=== PATIENT | female | born 1940 | race Caucasian/White ===

== ENCOUNTER 2023-03-02 09:07 | Outpatient (CLI) | payer MEDICARE, SELFPAY ==
[2023-03-02 09:39] LABS: Hematocrit 39.5 % (37.0-47.0); Hemoglobin 12.8 g/dL (12.0-15.0); Mean Corpuscular HGB Conc 32.4 g/dl (32-36); Mean Corpuscular Hemoglobin 31.3 pg (26-34); Mean Corpuscular Volume 96.6 fl (80-100); Mean Platelet Volume 8.8 fl (7.4-10.4); Platelet Count Result 259 k/mm3 (150-375); Red Blood Count 4.09 M/mm3 (4.2-5.4); Red Cell Distribution Width 12.6 % (11.5-14.5); White Blood Count 6.8 K/mm3 (4.5-10.0)
[2023-03-02 09:43] LABS: Appearance Urine Clear (Clear); Bilirubin Urine Negative (Negative); Blood Urine Negative (Negative); Color Urine Yellow (Yellow); Glucose Urine UA Negative (Negative); Ketones Urine Negative (Negative); Leukocyte Esterase Ur Negative LEU/UL (Negative); Nitrate Urine Negative (Negative); Protein Urine Negative (Negative); Specific Grav Ur 1.006 (1.001-1.035); Urobilinogen Urine 0.2 mg/dL (<2.0)
[2023-03-02 09:51] LABS: Prothrombin Time 13.2 Seconds (11.1-14.7)
[2023-03-02 09:52] LABS: Partial Thromboplastin Time 36.2 SECONDS (22.3-36.8)
[2023-03-02 09:54] LABS: Add Urine Microscopic? NO
[2023-03-02 10:20] LABS: Anion Gap 6 mmol/L (8-16); Blood Urea Nitrogen 15 mg/dL (7-17); Calcium 9.2 mg/dL (8.4-10.2); Carbon Dioxide 33 mmol/L (22-30); Chloride 100 mmol/L (98-107); Estimated Glomerular Filt Rate > 60; Glucose 108 mg/dL (65-110); Potassium 3.6 mmol/L (3.4-5.0); Sodium 139 mmol/L (137-145)
== END 2023-03-02 09:08 | disposition home or self-care (01) ==
LOC: ANHSURGERY 09:12
PROVIDERS: PCP Internal Medicine; Visit Provider Neurological Surgery
DX: Z01.818 Encounter for other preprocedural examination (principal); M48.062 Spinal stenosis, lumbar region with neurogenic claudication
CPT/HCPCS: 36415; 80048; 81003; 85027; 85610; 85730

== ENCOUNTER 2023-03-08 22:23 | Inpatient (IN) | payer MEDICARE, SELFPAY ==
--- NOTE | 2023-03-01 12:30 | PC.NURSE ---
Report to the Outpatient Waiting Room, entrance under the green pavilion located off [facility], at time 1000 on date _03/08/23 . Planned Procedure Time: _1200 . Time changes happen often and if your time is changed the preop area will call you the afternoon before. - You and your visitor will be asked to self-screen and do not enter if you have any COVID symptoms. - A mask is optional within the hospital at this time. Patients may have clear liquids (water, carbonated beverages, clear teas, apple juice) until 3 hours prior to surgery with a maximum of 20 ounces. - No food from midnight until time of surgery - Infants may have breast milk until 4 hours before surgery, infant formula 6 hours prior to surgery. - Children will be allowed to drink immediately following surgery. If applicable, please bring a bottle or sippy cup to assist with drinking. Juice, water, soda, and popsicles are readily available. For infants on formula, please bring formula the day of surgery. Pacifiers are allowed. Take the following medications with a SIP of water the morning of surgery: ___NONE DO NOT STOP ANY OF YOUR OTHER PRESCRIPTION MEDICATIONS PRIOR TO SURGERY ?EXCEPT THE FOLLOWING Medications to discontinue per physician ___PT STATES PER DR BURNETT HOLD IBUPROFEN 7 DAYS PRE OP.LAST DOSE 02/28/23 Date to take last dose Please no make-up, nail persian, hairspray, perfume, deodorant, or body powder the day of surgery. No jewelry (including any body piercings) or valuables the day of surgery, leave them at home. Please take a shower or bath the night before, or the morning of, surgery with an antibacterial soap. Wear comfortable, loose fitting clothing. Children are encouraged to wear pajamas. - Jewelry must be removed prior to entering the operating room. Rings and piercings that are not removed may be cut off. - The hospital will not accept responsibility for valuables. - Please leave all valuables, including medications, at home the day of surgery. If you are going home after surgery, a licensed four horse hitch driver must drive you home. - NO public transportation without another adult if you receive anesthesia. - We recommend that an adult stay with you for 24 hours following discharge. - We also recommend that you do not drive, make important decision, drink alcoholic beverages, or take any drugs that were not prescribed by your health care provider for at least 24 hours after your discharge time. For Pediatric surgeries, we recommend two adults accompany the child home. Follow any additional instructions given to you from your surgeon. If you or anyone in your household have experienced Covid symptoms in the past week, please notify your surgeon or the nurse liaison at the phone number below for possible testing. Telephone instructions given to ___PATIENT and asked if any additional questions and then verbalized understanding. Patient advised to call surgeon office or pre surgery nurse liaison [phone] if any additional questions.
[2023-03-01 12:41] VITALS: BMI 32.0
[2023-03-08] VITALS (18 sets, daily range): BP systolic 112–151; BP diastolic 45–74; PULSE 64–88; RESP 10–20; TEMP 36.3–37.4; O2SAT 93–100
--- NOTE | ~2023-03-08 | XR_ITS ---
EXAMINATION: XR fluoroscopy no charge DATE: 03/08/2023 14:00 CDT INDICATION: L2-5 LAMINECTOMY . TECHNIQUE: 1 fluoroscopic image of the lateral lumbar spine were obtained during L2-5 laminectomy per formed by the surgeon. I was not present in the operating room. Fluoroscopy exposure time was 2.3 sec onds. Air Kerma 1.2974 mGy. DAP 0.0257 mGym2. COMPARISON: None FINDINGS: Retractors over the posterior soft tissues. A probe identifies the L4 level in the space between the L3 and L4 spinous processes. IMPRESSION: Fluoroscopic documentation of L2-5 laminectomy. Please refer to the operative note for complete proce dural details . Reviewed, dictated and finalized at location K. IMPRESSION: Fluoroscopic documentation of L2-5 laminectomy. Please refer to the operative n ote for complete procedural details .
[2023-03-08] MEDS: LACTATED RINGERS 1,000 ML 30 ML IV CONT ×3 (10:30→21:16)
--- NOTE | 2023-03-08 11:55 | SUR.PREOP ---
Discussed delay with patient and family.
--- NOTE | 2023-03-08 12:57 | PM.IMHP ---
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 She has not changed appreciably since we last saw her. She does not have specific muscle group weakness or dermatomal numbness. She is not having any bowel or bladder difficulty. Review of Systems Review of Systems: Patient denies shortness of breath, cough, fever, chills, nausea, vomiting, weight loss, weight gain, chest pain, dysuria. She has back and leg pain and claudication as above. Review of systems is otherwise negative on 12 systems except as noted elsewhere. [facility] Past Medical History Medical History (Updated 12/04/22 @ 13:25 by Rani Caceres) Arthritis Hypertension Surgical History Surgical History (Updated 12/04/22 @ 13:25 by Rani Caceres) Carpal tunnel syndrome H/O: hysterectomy History of hip replacement History of knee replacement Family History Family History (Updated 12/04/22 @ 13:25 by Rani Caceres) Mother Cancer Social History Social History (Updated 12/04/22 @ 13:26 by Rani Caceres) Smoking status: Never smoker Second hand tobacco smoke exposure: No Alcohol intake: never Substance use: never Lack of Transportation: No Lack of Food: Never True Concerned About Future Housing: No Difficulty Paying Gas/Electric Bills: No Difficulty Paying for Meds: No Living arrangements: with family Spiritual care concerns: No Meds Home Medications and Allergies Home Medications Medication Instructions Recorded Confirmed Type diphenhydramine 25 1 tablet PO QHS PRN Insomnia 12/04/22 03/01/23 History mg-acetaminophen 500 mg tablet (Tylenol PM Extra Strength) ibuprofen 800 mg tablet 800 mg PO TID 12/04/22 03/01/23 History lisinopril 20 1 tablet PO DAILY 12/04/22 03/01/23 History mg-hydrochlorothiazide 12.5 mg tablet pregabalin 100 mg capsule 100 mg PO HS 12/04/22 03/01/23 History simvastatin 40 mg tablet 40 mg PO DAILY 12/04/22 03/01/23 History Allergies Allergy/AdvReac Type Severity Reaction Status Date / Time No Known Allergies Allergy Unverified 03/01/23 12:13 Vital Signs Vital Signs - 24 hr 03/08/23 10:20 Temperature 99.4 F Pulse Rate 64 Respiratory Rate 16 Blood Pressure 147/59 H Pulse Oximetry 99 Oxygen Delivery Room Air Exam Narrative: Strength is 5/5 in all muscle groups of the bilateral lower extremities. Sensation is intact to light touch throughout the lower extremities. Breathing is nonlabored Regular rate and rhythm Assessment and Plan Assessment and plan (1) Lumbar stenosis with neurogenic claudication: Code(s): M48.062 - Spinal stenosis, lumbar region with neurogenic claudication Status: Acute Plan Karen is an 83-year-old female with back and leg pain and neurogenic stenosis at L2-5. She presents now for L2-5 laminectomy. I described to her again that operation, its risks, potential benefits, the operative and postoperative course in detail and answered all her questions personally. She indicates understanding and elects to proceed with that operation.
--- NOTE | 2023-03-08 12:59 | WPDHPUPDATE1 ---
History and Physical Update Update Date/Time: 03/08/23 12:59 History and Physical has been reviewed, including an updated exam of the patient. There are NO changes in the patient's condition. Risks, benefits, and alternatives have been discussed and questions answered. Patient agrees to proceed with procedure.
--- NOTE | 2023-03-08 12:59 | SUR.PREOP ---
Again discussed delay with patient and family.
--- NOTE | 2023-03-08 13:20 | WPDANESEPPF ---
Anes - Initial Pre Proc Eval Procedure: Operation Date: 03/08/23 12:00 Proposed Procedures p L 2-5 Lumbar Laminectomy - Nilay Jean Baptiste MD Date/Time: 03/08/23 13:20 Surgeon: Nilay Jean Baptiste MD Pre Op Diagnosis: lumbar stenosis Patient Data Age: 83 Gender: F Height: 1.57 m Weight: 75 kg Last Vital Signs Temp 99.4 F 03/08/23 10:20 Pulse 64 03/08/23 10:20 Resp 16 03/08/23 10:20 BP 147/59 H 03/08/23 10:20 Pulse Ox 99 03/08/23 10:20 O2 Del Method Room Air 03/08/23 10:20 Allergies Allergy/AdvReac Type Severity Reaction Status Date / Time No Known Allergies Allergy Unverified 03/01/23 12:13 Home Medications Medication Instructions Recorded Confirmed Type diphenhydramine 25 1 tablet PO QHS PRN Insomnia 12/04/22 03/01/23 History mg-acetaminophen 500 mg tablet (Tylenol PM Extra Strength) ibuprofen 800 mg tablet 800 mg PO TID 12/04/22 03/01/23 History lisinopril 20 1 tablet PO DAILY 12/04/22 03/01/23 History mg-hydrochlorothiazide 12.5 mg tablet pregabalin 100 mg capsule 100 mg PO HS 12/04/22 03/01/23 History simvastatin 40 mg tablet 40 mg PO DAILY 12/04/22 03/01/23 History Patient hx anesthesia problems: post op nausea/vomiting Family hx anesthesia problems: none Results Review: All pre-operative results and documents have been reviewed as part of the pre-operative evaluation. [facility] Past Medical History Medical History (Updated 12/04/22 @ 13:25 by Rani Caceres) Arthritis Hypertension Surgical History Surgical History (Updated 12/04/22 @ 13:25 by Rani Caceres) Carpal tunnel syndrome H/O: hysterectomy History of hip replacement History of knee replacement Family History Family History (Updated 12/04/22 @ 13:25 by Rani Caceres) Mother Cancer Social History Social History (Updated 12/04/22 @ 13:26 by Rani Caceres) Smoking status: Never smoker Second hand tobacco smoke exposure: No Alcohol intake: never Substance use: never Lack of Transportation: No Lack of Food: Never True Concerned About Future Housing: No Difficulty Paying Gas/Electric Bills: No Difficulty Paying for Meds: No Living arrangements: with family Spiritual care concerns: No Anes - Eval Final PreProcedure Day of Procedure 03/08/23 13:20 Patient weight: obese Heart: regular rate and rhythm Lungs: clear to auscultation Airway: Mallampati scale class III Neurological: alert and oriented Last oral intake: >/= 8 hours ASA classification: III Emergent: no Anesthetic plan: proceed Anesthesia type and monitoring: general ETT and standard monitoring Results Review: All pre-operative results and documents have been reviewed as part of the pre-operative evaluation. Informed Consent: The patient's anesthetic plan and its attendant risks and benefits were discussed with the patient/family/POA. Questions were solicited and answers provided to the satisfaction of the patient/family/POA.
[2023-03-08] MEDS: ceFAZolin 2 GM/D5W 50 ML 2 GM/50 ML BAG IVPB (13:34)
[2023-03-08] MEDS: LIDO 1%/EPINEPHRINE 1:100,000 50 ML VIAL 10 ML INFILTRATE ×2 (14:21→20:49)
[2023-03-08] MEDS: fentaNYL CITRATE INJ (*CRX) 100 MCG/2 ML VIAL 25 MCG IV PUSH ×2 (15:59→16:13)
[2023-03-08] MEDS: MORPHINE SULFATE (*CRX) 2 MG/ML INJ IV PUSH ×2 (17:23→23:01)
--- NOTE | 2023-03-08 19:15 | PC.NURSE ---
Pt alert and oriented. Family at bedside. Pt concerned about lack of feeling to feet up to mid calf. Physical assessment completed and pt is not able to feel pressure or touch up to mid/upper calf. At upper calf pt is able to feel pressure and touch. Pt is able to lightly move her right toes and weak flex and extension. Left foot she is able to slightly move her big toe but unable to move other toes and weak flexion and extension (push and pull). Dr Jean Baptiste is coming in to evaluate patient. Health And Wellness Director Jillian is aware.
--- NOTE | 2023-03-08 19:32 | W.PM.PROC2 ---
Procedure Note - Detailed Date of Procedure 03/08/23 Pre-op Diagnosis lumbar stenosis Post-op Diagnosis Same Procedure Performed L2-5 laminectomy Surgeon Nilay Jean Baptiste MD Anesthesia General Description of Procedure the patient was brought to the operating room in the supine position, was sedated, intubated and placed under general anesthesia in routine fashion. She was then turned into the prone position on a Sebastián frame. The of operation her back was examined, marked for incision, prepped and draped in routine sterile fashion. Incision was marked over the L2-3 5 spinous processes in the midline. This area was injected with 0.5% lidocaine with 1 to 306407 epinephrine. Intravenous antibiotics given prior to incision. Incision was made with a 10 blade scalpel down to the lumbar dorsal fascia. A subperiosteal dissection of the muscle soft tissue away from spinous process and lamina was performed with a subperiosteal elevator and Bovie cautery. A verifying x-rays obtained to verify the level of operation. The L2-3 for spinous processes in the top of the L5 spinous process were removed with the coarsely rongeur. A Midas Krishna drill within a corn bit was used to thin the lamina in the midline to the soft contents of the canal were encountered. Kerrison punches were used to remove the yellow ligament in the midline. Curved curette was used define a plane with the dura and Kerrison punches were used to remove additional bone and ligament in the lateral recess starting superiorly and working inferiorly bilaterally. This was done until the pedicles could be palpated. The top of the L5 lamina was also removed using Kerrison punches after careful dissection way with curved curettes. These maneuvers were performed until adequate decompression was achieved. The wound was then copiously irrigated with bacitracin irrigation all bleeding was stopped with bipolar and Bovie cautery and Gelfoam thrombin powder. The wound was then closed after a medium him a back drain was left in the sub fascial position buried out to the inferior right of the incision. Two 0 Vicryl interrupted sutures were placed in the lumbar dorsal fascia and scarf is layer. Three 0 Vicryl buried interrupted sutures were placed in the dermis in the skin was closed with a running 4 0 Monocryl subcuticular stitch and dressed with Dermabond. The patient was allowed wake up in the operating room and was taken to the recovery room in stable condition. There were no immediate complications of this operation. All counts were reported correct in the case. Blood loss was 150 cc. The patient was neurologically at her baseline postoperatively. CPT codes: 77255, 64984 x 3 Estimated Blood Loss 150 IV Fluids 1,000 Drains Yes Complications None Condition Stable Disposition PACU [facility] Billing Surgery - Charge Forward: Surgery Billing
--- NOTE | 2023-03-08 19:34 | PC.NURSE ---
Addendum entered by Regina Rivera RN 03/09/23 11:25: RN completed neurovascular check, not neurological. Clarifying that the patient was found with HOB elevated and legs elevated in bed after family wanted her to sit up for dinner. It was noted by the TUTORING ASSISTANT that the family adjusted the patient's bed. Original Note: Upon patient arrival to the unit, RN completed neurological check which was normal. BLE reflexes, sensation, and pulses were WNL. Dressing was dry and intact and hemovac drain to suction and WNL. At 1830 RN returned to assess patient after family reported the patient experiencing numbness and tingling in the BLE. After assessing RN noted the sensation was decreased in BLE, and reflexes were diminished, pulses palpable. The TUTORING ASSISTANT assigned to this patient reported to the RN that she had found the patient with legs elevated in bed, HOB raised, and two pillows behind the head. TUTORING ASSISTANT returned the patient to a neutral position. RN requested assistance of toll bridge attendant in assessing patient condition and the toll bridge attendant brought in an information sheet about the do's and don'ts of positioning/movement of the patient. Dr. Jean Baptiste was then called and notified of the change in patient condition, he requested we get a STAT MRI to which we informed him the MRI staff is gone for the night. The data warehouse specialist was then involved and contacted Dr. Jean Baptiste herself. Dr. Jean Baptiste arrived to the unit and saw the patient around 19:30. Report was given to oncoming nightshift RN and nightshift Charge nurse was made aware of the situation.
--- NOTE | 2023-03-08 19:37 | WPDNEUROSGPN ---
Progress Note: A&P Assessment and Plan (1) Lumbar stenosis with neurogenic claudication: Code(s): M48.062 - Spinal stenosis, lumbar region with neurogenic claudication Status: Acute Plan Karen is an 83-year-old female status post L2-5 laminectomy earlier today with neurologic changes in her legs that are concerning for the development of a hematoma despite having a drain in place. The drain does not appear to be draining much. The patient states that it may have been emptied when she was in recovery but not since and it remains completely compressed without much drainage in it. I am told that an MRI cannot be performed at this institution this evening which limits me significantly diagnostically. The most likely scenario is that she has developed a hematoma but it is not impossible that it is tract in the epidural space of the higher levels of her spine and will do so undetected without the MRI. Still, the significant delays that will occur if we even emergently transfer her to a different institution due gain that imaging likely risks further neurologic deterioration and worsens her prognosis for recovery. I presented both these alternatives and the risks to Karen, that is, the risk of continued neurologic deterioration with the delays of transfer verses performing an operation that is not helpful or is negative for hematoma because there is a different problem and play. She believes that we should proceed with opening her wound here and I agree that this is probably the safest thing for her. This attacks the most likely cause of the problem and other potential causes can be evaluated later. I described to her that operation, its risks, potential benefits, the operative and postoperative course and answered all her questions. She indicates understanding and elects to proceed with a lumbar wound exploration for potential hematoma. Subjective Date/time seen: 03/08/23 19:37 Interval history: I was called to be notified that Karen was having issues in her lower extremities with sensation and strength. A came to the bedside to examine her and to arrange for any appropriate care. She says that she is having decreased sensation which is very significant from her waist down and is not able to move her legs well. I am told that I am unable to get an MRI scan at this institution this evening. She has not had any incontinence. Exam Narrative: The patient is able to move all the muscle groups of her lower extremities weakly. She was not antigravity at the hips but did flex her hips. She was able to hold her leg straight for a moment at the knee. She did plantar flex and dorsiflex her toes weakly. Sensation was decreased to both light touch and painful stimulus. She claimed not to be able to feel either. Her wound is clean, dry and intact. Her drain is compressed with no significant drainage in it. There is apparently not been any emptying of the drain since she reached the floor. Objective Data Vital Signs Vital Signs: Vital Signs - 24 hr 03/08/23 10:20 03/08/23 15:26 03/08/23 15:40 Temperature 99.4 F 98.2 F Pulse Rate 64 70 71 Respiratory Rate 16 14 13 Blood Pressure 147/59 H 125/45 L 133/53 L Pulse Oximetry 99 100 98 Oxygen Delivery Room Air Simple Face Mask Room Air Oxygen Flow Rate 6 03/08/23 15:55 03/08/23 16:14 03/08/23 16:19 Temperature Pulse Rate 66 66 Respiratory Rate 19 12 Blood Pressure 124/61 130/56 L Pulse Oximetry 94 95 97 Oxygen Delivery Room Air Room Air Nasal Cannula Oxygen Flow Rate 2 03/08/23 16:29 03/08/23 16:29 03/08/23 16:44 Temperature 97.9 F 97.9 F Pulse Rate 66 66 66 Respiratory Rate 12 16 18 Blood Pressure 129/56 L 145/58 H 151/60 H Pulse Oximetry 98 100 100 Oxygen Delivery Nasal Cannula Oxygen Flow Rate 2 03/08/23 16:59 Temperature 98.3 F Pulse Rate 87 Respiratory Rate 18 Blood Pressure 124/58 L Pulse Oximetry 98 Oxygen Delivery
--- NOTE | 2023-03-08 19:39 | P.PNAN_ITS ---
Anes - Eval Pre Procedure Procedure: Operation Date: 03/08/23 12:00 Proposed Procedures Post operative hematoma evacuation - Nilay Jean Baptiste MD Date/Time: 03/08/23 19:39 Preop Diagnosis: post operative hematoma Pre Op Diagnosis: lumbar stenosis Patient Data Age: 83 Gender: F Height: 1.57 m Weight: 75 kg Last Vital Signs Temp 36.8 C 03/08/23 16:59 Pulse 87 03/08/23 16:59 Resp 18 03/08/23 16:59 BP 124/58 L 03/08/23 16:59 Pulse Ox 98 03/08/23 16:59 O2 Del Method Nasal Cannula 03/08/23 16:29 O2 Flow Rate 2 03/08/23 16:29 Allergies Allergy/AdvReac Type Severity Reaction Status Date / Time No Known Allergies Allergy Unverified 03/01/23 12:13 Home Medications Medication Instructions Recorded Confirmed Type diphenhydramine 25 1 tablet PO QHS PRN Insomnia 12/04/22 03/01/23 History mg-acetaminophen 500 mg tablet (Tylenol PM Extra Strength) ibuprofen 800 mg tablet 800 mg PO TID 12/04/22 03/01/23 History lisinopril 20 1 tablet PO DAILY 12/04/22 03/01/23 History mg-hydrochlorothiazide 12.5 mg tablet pregabalin 100 mg capsule 100 mg PO HS 12/04/22 03/01/23 History simvastatin 40 mg tablet 40 mg PO DAILY 12/04/22 03/01/23 History Patient hx anesthesia problems: post op nausea/vomiting Family hx anesthesia problems: none Results Review: All pre-operative results and documents have been reviewed as part of the pre- operative evaluation. [facility] Past Medical History Medical History Arthritis Hypertension Surgical History Surgical History (Updated 12/04/22 @ 13:25 by Rani Caceres) Carpal tunnel syndrome H/O: hysterectomy History of hip replacement History of knee replacement Family History Family History (Updated 12/04/22 @ 13:25 by Rani Caceres) Mother Cancer Social History Social History (Updated 12/04/22 @ 13:26 by Rani Caceres) Smoking status: Never smoker Second hand tobacco smoke exposure: No Alcohol intake: never Substance use: never Lack of Transportation: No Lack of Food: Never True Concerned About Future Housing: No Difficulty Paying Gas/Electric Bills: No Difficulty Paying for Meds: No Living arrangements: with family Spiritual care concerns: No Exam Day of Procedure 03/08/23 19:39
--- NOTE | 2023-03-08 19:55 | PC.NURSE ---
1944 Transfered pt to pacu for emergnecy surgery with Dr. Jean Baptiste. Family members at bedside.
--- NOTE | 2023-03-08 20:07 | P.PNAN_ITS ---
Anes - Eval Final PreProcedure Day of Procedure 03/08/23 20:07 Patient weight: obese Heart: regular rate and rhythm Lungs: clear to auscultation Airway: Mallampati scale class III Last oral intake: 2 hours ASA classification: III Emergent: yes Anesthetic plan: proceed Anesthesia type and monitoring: general ETT and standard monitoring Results Review: All pre-operative results and documents have been reviewed as part of the pre- operative evaluation. Informed Consent: The patient's anesthetic plan and its attendant risks and benefits were discussed with the patient/family/POA. Questions were solicited and answers prov ided to the satisfaction of the patient/family/POA.
[2023-03-08] MEDS: ceFAZolin 1 GM/NS 50 ML 1 GM/50 ML BAG IVPB ×2 (20:20→22:50)
[2023-03-08] MEDS: ONDANSETRON INJ 4 MG/2 ML VIAL IV PUSH ×2 (21:47→22:58)
--- NOTE | 2023-03-08 22:17 | PC.NURSE ---
2215 PT BACK IN ROOM 259 FROM PACU. PT IS NAUSEOUS BUT HAS HAD ZOFRAN IN PACU. PROVIDED PT WITH WHITE SODA. PERFORMED NEUROVASCULAR CHECK PT IS WIGGLING TOES, ABLE TO LIFT LEGS, AND HAS NORMAL SENSATION IN BOTH LEGS. PT HAS NO COMPLAINTS OF PAIN AND APPEARS COMFORTABLE. FAMILY AT BEDSIDE.
[2023-03-08] MEDS: DOCUSATE SODIUM 100 MG CAPSULE PO (22:50)
[2023-03-08] MEDS: PREGABALIN (*CRX) 50 MG CAPSULE 100 MG PO (22:50)
[2023-03-08] MEDS: KCL 20 MEQ/D5/0.45% SOD CHL 1,000 ML 100 ML IV CONT (22:51)
[2023-03-09] VITALS (7 sets, daily range): BP systolic 108–145; BP diastolic 46–54; PULSE 58–64; RESP 16–18; TEMP 36.5–36.9; O2SAT 94–98
[2023-03-09] MEDS: HYDROcodone/acetaminophen (*CRX) 5-325 MG TABLET 1 TAB PO ×2 (01:35→05:19)
[2023-03-09] MEDS: ceFAZolin 1 GM/NS 50 ML 1 GM/50 ML BAG IVPB ×3 (05:17→23:28)
[2023-03-09] MEDS: ONDANSETRON INJ 4 MG/2 ML VIAL IV PUSH ×2 (05:26→12:45)
--- NOTE | 2023-03-09 07:56 | WPDANESPN ---
Anes - Prog Note Post-Op Date/Time: 03/09/23 07:56 Vital Signs: Last Vital Signs Temp 36.9 C 03/09/23 03:50 Pulse 58 L 03/09/23 03:50 Resp 16 03/09/23 03:50 BP 122/50 L 03/09/23 03:50 Pulse Ox 94 03/09/23 03:50 O2 Del Method Room Air 03/08/23 22:23 O2 Flow Rate 6 03/08/23 21:16 Pain Score (VAS): 2 I/O: Intake & Output 03/08/23 03/08/23 03/09/23 15:59 23:59 07:59 Intake Total 50 1420 Output Total 25 700 Balance 50 0515 -700 Patient Feedback: Patient satisfied with anesthetic care.
[2023-03-09] MEDS: HYDROcodone/acetaminophen (*CRX) 10-325 MG TABLET 1 TAB PO ×2 (12:21→23:51)
[2023-03-09] MEDS: DOCUSATE SODIUM 100 MG CAPSULE PO ×2 (12:22→20:46)
[2023-03-09] MEDS: SIMVASTATIN 20 MG TABLET 40 MG PO (12:22)
[2023-03-09] MEDS: hydroCHLOROthiazide 12.5 MG CAPSULE PO (12:22)
[2023-03-09] MEDS: lisinopriL 20 MG TABLET PO (12:23)
--- NOTE | 2023-03-09 12:39 | PCPTNOTE ---
On 03/09/23, the student, [Jonelle Cash], provided care and completed [employer] documentation on this patient. I have reviewed the student's documentation and agree with the findings.
[2023-03-09] MEDS: KCL 20 MEQ/D5/0.45% SOD CHL 1,000 ML 100 ML IV CONT ×2 (12:52→23:54)
--- NOTE | 2023-03-09 17:40 | WPDNEUROSGPN ---
Progress Note: A&P Assessment and Plan (1) Lumbar stenosis with neurogenic claudication: Code(s): M48.062 - Spinal stenosis, lumbar region with neurogenic claudication Status: Acute Assessment and Plan: Pateint is s/p lumbar decompression with return to OR for hematoma evacuation Doing well neurologically with resolution of symtpoms Ambulating in halls drain to remain in overnight Anticipate drain removal and likely d/c to home in am 03/10 Subjective Date/time seen: 03/09/23 17:40 Interval history: Patient with history of lumbar decompression 03/08 c/b postoperative hematoma REturn to OR with evacuation of hematoma Patient doing well this afternoon with resolution of lower extremity symptoms Only mild low back pain Hemovac in place Exam Narrative: AWake, alert, oriented x 3 Speech CF AZALIA eOMI Face= TML MAEW with good strength Dressing / incision CDI Objective Data Vital Signs Vital Signs: Vital Signs - 24 hr 03/08/23 19:47 03/08/23 21:16 03/08/23 21:30 Temperature 98.6 F 97.4 F L Pulse Rate 71 88 78 Respiratory Rate 20 10 L 12 Blood Pressure 138/55 L 146/71 H 121/57 L Pulse Oximetry 98 100 98 Oxygen Delivery Simple Face Mask Room Air Oxygen Flow Rate 6 03/08/23 21:45 03/08/23 22:00 03/08/23 22:23 Temperature 97.7 F Pulse Rate 79 75 73 Respiratory Rate 15 14 18 Blood Pressure 121/65 138/60 129/54 L Pulse Oximetry 98 98 96 Oxygen Delivery Room Air Room Air Oxygen Flow Rate 03/08/23 22:53 03/08/23 22:23 03/08/23 22:38 Temperature 97.5 F L 97.7 F Pulse Rate 70 70 67 Respiratory Rate 18 18 16 Blood Pressure 112/49 L 135/74 Pulse Oximetry 95 95 94 Oxygen Delivery Room Air Oxygen Flow Rate 03/08/23 23:23 03/09/23 03:50 03/09/23 08:39 Temperature 97.6 F 98.5 F 98.5 F Pulse Rate 65 58 L 64 Respiratory Rate 18 16 16 Blood Pressure 142/69 H 122/50 L 129/54 L Pulse Oximetry 93 94 95 Oxygen Delivery Oxygen Flow Rate 03/09/23 08:40 03/09/23 09:37 03/09/23 08:40 Temperature Pulse Rate Respiratory Rate Blood Pressure Pulse Oximetry Oxygen Delivery Room Air Room Air Room Air Oxygen Flow Rate 03/09/23 12:00 03/09/23 17:22 Temperature 98.0 F 97.8 F Pulse Rate 61 60 Respiratory Rate 16 16 Blood Pressure 120/50 L 108/46 L Pulse Oximetry 97 98 Oxygen Delivery Oxygen Flow Rate Intake/Output Intake/Output: Intake & Output 03/06/23 03/07/23 03/08/23 03/09/23 23:59 23:59 23:59 23:59 Intake Total 1470 400 Output Total 25 750 Balance 1445 -350 Meds/Results Medications: Active Medications Generic Name Dose Route Start Last Admin Trade Name Freq PRN Reason Stop Dose Admin Acetaminophen 500 mg 03/08/23 21:00 Acetaminophen 500 Mg Tablet PO QHS PRN Insomnia Hydrocodone Bitart/Acetaminophen 1 tab 03/08/23 16:29 03/09/23 01:35 Hydrocodone/Acetaminophen (*Crx) 5-325 Mg Tablet PO 1 tab Q4H PRN Administration Mild Pain (1-3) Hydrocodone Bitart/Acetaminophen 1 tab 03/08/23 16:29 03/09/23 12:21 Hydrocodone/Acetaminophen (*Crx) 10-325 Mg Tablet PO 1 tab Q4H PRN Administration Moderate Pain (4-6) Al Hydrox/Mg Hydrox/Simethicone 20 ml 03/08/23 16:29 Mag Hydrox/Al Hydrox/Simeth 30 Ml Udc PO Q4H PRN Indigestion/Heartburn Bisacodyl 10 mg 03/08/23 16:29 Bisacodyl 10 Mg Suppository RECTAL DAILY PRN Constipation Cyclobenzaprine HCl 10 mg 03/08/23 16:29 Cyclobenzaprine Hcl 10 Mg Tablet PO TID PRN Muscle Spasms Diphenhydramine HCl 25 mg 03/08/23 21:00 Diphenhydramine Hcl Cap 25 Mg Capsule PO QHS PRN Insomnia Docusate Sodium 100 mg 03/09/23 09:00 03/09/23 12:22 Docusate Sodium 100 Mg Capsule PO 100 mg Q12HR JM Administration Hydrochlorothiazide 12.5 mg 03/09/23 09:00 03/09/23 12:22 Hydrochlorothiazide 12.5 Mg Capsule PO 12.5 mg DAILY JM Administration Potassium Chloride/Dextro
--- NOTE | 2023-03-09 18:14 | P.OP_ITS ---
Procedure Note - Detailed Date of Procedure 03/09/23 Pre-op Diagnosis Status post lumbar laminectomy, possible postoperative hematoma causing cauda equina syndrome. Post-op Diagnosis Other ( Status post lumbar laminectomy with postoperative hematoma causing cauda equina syndrome.) Procedure Performed Exploration of lumbar wound for hematoma evacuation Surgeon Nilay Jean Baptiste MD Anesthesia General Description of Procedure the patient was brought to the operating room in the supine position, was sedated, intubated and placed under general anesthesia routine fashion. She was then turned into the prone position on a Sebastián frame. The area of operation her back was examined, marked for incision, prepped and draped in routine sterile fashion. Incision was marked over the previous incision. This area was injected with 0.5% lidocaine with [id number] epinephrine. Intravenous antibiotics given prior to incision. Incision was made through the previous incision cutting the subcuticular and dermal stitches. The fascial stitches were cut with John scissors. A self- retaining retractor was placed. Hard and soft clot was immediately discovered. There was significant firm clot all the way down into the epidural space compressing the thecal sac. This was lifted using [place] dissectors and a F reer and suction. The lateral recess on each side was probed with a Garland to make sure that any additional clot was removed. A dental instrument was used to feel above under the lamina above and below to make sure that any clot there was also relieved. Bleeding was then addressed in the soft tissues and the epidural space. Bovie cautery and bipolar cautery was used to stop any bleeding in the muscles on either side. Surgiflo was used in the lateral recess to stop bleeding in the epidural space and bone wax was placed against any raw bone surfaces that could bleed. All bleeding appeared to be stopped. A new medium Hemovac drain was placed in a subfascial position. After the inferior and left of the incision. This was quickly attached to bulb suction after the fascia was closed. After copious irrigation with bacitracin irrigation the wound was closed with 2-0 Vicryl interrupted sutures in the lumbodorsal fascia and Jesus's layer. 3-0 Vicryl buried interrupted sutures were placed in the dermis and the skin was closed with a running 4-0 Monocryl subcuticular stitch and dressed with Dermabond. The patient was allowed to wake up in the operating room and was taken to the recovery room in stable condition. There were no immediate complications of this operation. All counts were reported correct at the end of the case. Blood loss was 50 cc. The patient was neurologically dramatically improved postoperatively. Estimated Blood Loss -50.0 IV Fluids 1,000 Urine Output 200
[2023-03-09] MEDS: PREGABALIN (*CRX) 50 MG CAPSULE 100 MG PO (20:46)
[2023-03-10 04:12] VITALS: BP 112/42; PULSE 61; RESP 16; TEMP 37; O2SAT 95
[2023-03-10] MEDS: ceFAZolin 1 GM/NS 50 ML 1 GM/50 ML BAG IVPB ×2 (06:50→14:57)
[2023-03-10 10:10] VITALS: BP 124/48; PULSE 76; RESP 17; TEMP 36.3; O2SAT 99
[2023-03-10] MEDS: SIMVASTATIN 20 MG TABLET 40 MG PO (10:12)
[2023-03-10] MEDS: HYDROcodone/acetaminophen (*CRX) 10-325 MG TABLET 1 TAB PO (10:12)
[2023-03-10] MEDS: DOCUSATE SODIUM 100 MG CAPSULE PO (10:12)
[2023-03-10 11:00] VITALS: BP 109/68; PULSE 66; RESP 16; TEMP 37.3; O2SAT 94
[2023-03-10 13:55] VITALS: BP 112/51; PULSE 62; RESP 16; TEMP 37.4; O2SAT 97
--- NOTE | 2023-04-09 12:33 | PM.DS ---
DS: Admitting Diagnosis Discharge Date 03/10/23 Admitting Diagnosis Lumbar stenosis with neurogenic claudication DS: Discharge Diagnosis Discharge Diagnosis Plan lumbar stenosis with neurogenic claudication Postoperative hematoma DS: Summary Hospital Course Hospital Course: Karen is an 83-year-old female with neurogenic claudication secondary to spinal stenosis who presents for decompression by way of laminectomy at L2-5. She went to the operating room on 03/08/2023 with the aforementioned operation was performed without complication. Her postoperative course was complicated with by a postoperative hematoma that was removed by way of wound exploration that same day. Before the wound exploration she was developing weakness and numbness in her lower extremities and was not able to ambulate. Postoperatively she did quite well and rebounded back to normal neurologic status. At the time of her discharge she was eating, ambulating, emptying her bladder, and her pain was under control by mouth pain medicine. Her wound remained clean, dry and intact. She was afebrile with stable vital signs. She was therefore allowed to be discharged home. Time Spent with Patient Time attestation: Total time spent providing and/or coordinating discharge services: Discharge Plan Discharge Attending physician on discharge: Nilay Jean Baptiste Consulting providers: Cecilio Bangura; Amor Nj; Alisa Washington; Kumar Jaquez; Kathrin Bunn Discharging Clinician: Regina Medina Anticipated Discharge Date/Time: 03/10/23 16:26 Patient Disposition: Home, Self-Care Activity: may shower, no straining and may drive after 2 weeks Diet: as tolerated Stand Alone Forms: General Discharge Instructions Follow-up/Referrals: Nilay Jean Baptiste MD [Physician] - 2 Weeks Discharge Medications: New hydrocodone-acetaminophen 5-325 mg tablet 1 tablet PO Q6H PRN (Reason: pain) Qty: 30 0RF Continued ibuprofen 800 mg tablet 800 mg PO TID lisinopril-hydrochlorothiazide 20-12.5 mg tablet 1 tablet PO DAILY pregabalin 100 mg capsule 100 mg PO HS simvastatin 40 mg tablet 40 mg PO DAILY No Action diphenhydramine-acetaminophen [Tylenol PM Extra Strength] 25-500 mg tablet 1 tablet PO QHS PRN (Reason: Insomnia) Date of admission: 03/08/23 22:23 Primary Care Provider: Ritesh,Artemio Hand Admitting Provider: Nilay Jean Baptiste Attending physician on admission: Regina Medina Condition: Stable
== END 2023-03-10 17:45 | disposition home or self-care (01) | DRG 516 ==
LOC: ANHSURGERY 22:25 → ANH2MED 03-09 08:25
PROVIDERS: Admitting Provider Neurological Surgery; PCP Internal Medicine; Visit Provider Neurological Surgery
PROC: (CPT 63005; principal; 2023-03-08 12:00)
DX: M48.062 Spinal stenosis, lumbar region with neurogenic claudication (principal); G83.4 Cauda equina syndrome; G97.61 Postprocedural hematoma of a nervous system organ or structure following a nervous system procedure; M19.90 Unspecified osteoarthritis, unspecified site; I10 Essential (primary) hypertension; Z96.60 Presence of unspecified orthopedic joint implant; Z96.659 Presence of unspecified artificial knee joint; E66.9 Obesity, unspecified; Z68.30 Body mass index [BMI] 30.0-30.9, adult; Z90.710 Acquired absence of both cervix and uterus
CPT/HCPCS: 97110; 97116; 97161; 97165; 97535; 99199; A9270; J0330; J0690; J1100; J2270; J2370; J2405; J2704; J3010; J3480; J7120

== ENCOUNTER 2023-05-18 13:09 | Outpatient (CLI) | payer MEDICARE, SELFPAY ==
--- NOTE | ~2023-05-18 | XR_ITS ---
Lumbosacral Spine: AP and lateral views Clinical History: Pain Findings: There is mild dextroscoliosis. There are 6 mm retrolisthesis of L2 over L3. There is severe degenerative disc narrowing at L3-L4. There is moderate to advanced facet arthropathy from L2 throug h S1. There is severe degenerative disc narrowing at L5-S1.. The sacroiliac joints are normally outl ined. Impression: Degenerative spondylosis, as above. 6 mm retrolisthesis of L2 over L3. Mild dextro scoliosis. Reviewed, dictated and finalized at location M. Impression: Degenerative spondylosis, as above. 6 mm retrolisthesis of L2 over L3. Mild dextro scoliosis.
== END 2023-05-18 13:10 | disposition home or self-care (01) ==
PROVIDERS: PCP Internal Medicine; Visit Provider Neurological Surgery
DX: Z98.890 Other specified postprocedural states (principal); M43.06 Spondylolysis, lumbar region; M41.87 Other forms of scoliosis, lumbosacral region
CPT/HCPCS: 72100